=== PATIENT | female | born 1950 | race Caucasian/White ===

== ENCOUNTER 2022-06-04 18:27 | Inpatient (IN) | payer MEDICARE ==
[2022-06-04 19:38] LABS: ESTIMATED GFR 26 mL/min (>60)
[2022-06-04] MEDS: Sodium Chloride 0.9% 1,000 ML IV SCH ×2 (20:00→22:35)
[2022-06-04] MEDS ORDERED: Piperacillin/Tazobactam 2.25 GM in Sodium Chloride 0.9% 50 ML IV ONE (21:57)
[2022-06-04] MEDS ORDERED: Sodium Chloride 0.9% 1,000 ML IV SCH (23:00)
[2022-06-04] MEDS ORDERED: Ondansetron 4 MG/2 ML SDV IVPUSH PRN (23:45)
[2022-06-04] MEDS ORDERED: Acetaminophen 325 MG Tab PO PRN (23:45)
[2022-06-05] MEDS ORDERED: Sodium Chloride 0.9% 1,000 ML IV SCH ×2 (00:30→02:45)
[2022-06-05] MEDS ORDERED: Witch Hazel Medicated Pads 100/Jar TOP PRN (02:22)
[2022-06-05] MEDS ORDERED: Piperacillin/Tazobactam 2.25 GM in Sodium Chloride 0.9% 50 ML IV SCH (04:00)
[2022-06-05 07:06] LABS: HEMOGLOBIN A1C 6.5 % (4.5-6.2)
[2022-06-05] MEDS ORDERED: Pantoprazole 40 MG Tab.CR PO SCH (07:30)
[2022-06-05] MEDS: Morphine 2 MG/ML SYRINGE IVPUSH PRN ×2 (09:25→10:28)
[2022-06-05] MEDS ORDERED: Piperacillin/Tazobactam/Dext 2.25 GM in Premix Bag 1 BAG IV SCH (10:00)
[2022-06-05] MEDS ORDERED: Hydrocortisone Sodium Succinate 100 MG/2 ML SDV IVPUSH ONE (10:30)
[2022-06-05] MEDS: Vancomycin 125 MG Cap PO ONE ×2 (10:52→11:06)
[2022-06-05] MEDS ORDERED: Morphine 2 MG/ML SYRINGE IVPUSH PRN (11:19)
[2022-06-05] MEDS ORDERED: Norepinephrine Bit/D5W Premix 4 MG in Premix Bag 1 BAG IV SCH (12:45)
[2022-06-06] MEDS ORDERED: Piperacillin/Tazobactam 2.25 GM in Sodium Chloride 0.9% 50 ML IV SCH (04:00)
[2022-06-07 05:12] LABS: BANDS 4 % (Not Estab.); BASOS 0 % (Not Estab.); EOS 0 % (Not Estab.); HEMATOCRIT 39.1 % (34.0-46.6); HEMOGLOBIN 10.2 g/dL (11.1-15.9); IMMATURE CELLS Note (.); LYMPHS 7 % (Not Estab.); LYMPHS (ABSOLUTE) 4.2 x10E3/uL (0.7-3.1); MCH 19.1 pg (26.6-33.0); MCHC 26.1 g/dL (31.5-35.7); MCV 73 fL (79-97); MONOCYTES 5 % (Not Estab.); NEUTROPHILS 84 % (Not Estab.); NEUTROPHILS (ABSOLUTE) 52.6 x10E3/uL (1.4-7.0); PLATELETS 676 x10E3/uL (150-450); RBC 5.35 x10E6/uL (3.77-5.28); RDW 16.3 % (11.7-15.4); WBC 59.8 x10E3/uL (3.4-10.8)
== END 2022-06-05 13:00 | disposition expired | DRG 871 ==
LOC: JP.ED 18:27 → JP.MS 23:05
PROVIDERS: ADMIT Family Medicine; ATTEND Family Medicine
DX: K55.9 Vascular disorder of intestine, unspecified (principal); A41.9 Sepsis, unspecified organism; R13.0 Aphagia; K55.059 Acute (reversible) ischemia of intestine, part and extent unspecified; R65.21 Severe sepsis with septic shock; N17.9 Acute kidney failure, unspecified; E87.5 Hyperkalemia; Z66 Do not resuscitate; Z20.822 Contact with and (suspected) exposure to COVID-19; K52.9 Noninfective gastroenteritis and colitis, unspecified; D50.9 Iron deficiency anemia, unspecified; D75.839 Thrombocytosis, unspecified; R73.9 Hyperglycemia, unspecified; Z90.49 Acquired absence of other specified parts of digestive tract; Z98.890 Other specified postprocedural states; Z90.710 Acquired absence of both cervix and uterus; Z85.42 Personal history of malignant neoplasm of other parts of uterus
CPT/HCPCS: 36415; 71250; 74176; 80053; 82272; 83605; 83690; 84145; 85025; 86140; 87046; 87493; 87899 ×2; 89055; J2543; J7030 ×2; U0002; 36430; 80048; 82728; 82947; 83036; 83550; 84132; 85027; 85060; 86850; 86900; 86901; 86920; 86922; 93005; 93010; 96361; 96365; 99239; 99284; 99285-25; A9270-GY; J1720; J2270; P9016